=== PATIENT | male | born 1995 | race Caucasian/White ===

== ENCOUNTER 2017-06-27 17:28 | Emergency (ER) | payer BC ==
--- NOTE | 2017-06-27 18:27 | EDM.PDOC ---
ED HPI GENERAL MEDICAL PROBLEM - General Chief Complaint: Respiratory Problem Stated Complaint: PT HAS FLU SYMPTOMS Time Seen by Provider: 06/27/17 17:36 Source of Information: Reports: Patient History Limitations: Reports: No Limitations - History of Present Illness INITIAL COMMENTS - FREE TEXT/NARRATIVE: HISTORY AND PHYSICAL: History of present illness: Patient is a 21-year-old male who presents to the emergency room today with complaints of cough 1 month. Over the past 2-3 days he has had body aches, sore throat, and productive cough (yellow/brown sputum). He states he has used Mucinex, Tylenol, ibuprofen with no relief. Denies any chest pain, shortness of breath, abdominal pain, nausea, vomiting or diarrhea. Denies any fever or chills. Has not received the influenza vaccine. Review of systems: As per history of present illness and below otherwise all systems reviewed and negative. Past medical history: As per history of present illness and as reviewed below otherwise noncontributory. Surgical history: As per history of present illness and as reviewed below otherwise noncontributory. Social history: No reported history of drug or alcohol abuse. Family history: As per history of present illness and as reviewed below otherwise noncontributory. Physical exam: General: Well-developed and well-nourished 21-year-old male. Alert and oriented. Nontoxic appearing and in no acute distress. HEENT: Atraumatic, normocephalic, pupils reactive, negative for conjunctival pallor or scleral icterus, mucous membranes moist, tympanic membranes normal bilaterally, mild erythema noted to posterior pharynx otherwise throat clear, neck supple, nontender, trachea midline. Lungs: Clear to auscultation, breath sounds equal bilaterally, chest nontender. Dry nonproductive cough noted. Heart: S1S2, regular rate and rhythm Abdomen: Soft, nondistended, nontender. Negative for masses or hepatosplenomegaly. Negative for costovertebral tenderness (nephrectomy on right ). Pelvis: Stable nontender. Genitourinary: Deferred. Rectal: Deferred. Extremities: Atraumatic, moves all extremities per self, negative for cords or calf pain. Neurovascular unremarkable. Neuro: Awake, alert, oriented. Cranial nerves II through XII unremarkable. Cerebellum unremarkable. Motor and sensory unremarkable throughout. Exam nonfocal. Influenza and strep are negative. Due to patient's history of coughing 1 month , we will place the patient on a Z-Genaro and Medrol Dosepak. He is really electronically sent to an [facility] pharmacy. Patient is complaining of throat pain and would like something besides [id number] medication. We'll give Phenergan with codeine, 10 amounts every 6 hours when necessary. Encouraged him to save this for nighttime or evening use. He voices understanding. Dispense 4 ounces, no refill. Supportive care measures were discussed with the patient. He voices understanding and is agreeable to plan of care. He denies any further questions at this time. Diagnostics: Influenza, strep Therapeutics: [] Impression: Bronchitis Plan: 1. Influenza and strep screening were negative. Due to the longevity of your cough and symptoms we'll place you on an antibiotic and steroid dosing pack. Please take these medications as directed. Phenergan with codeine has been prescribed for cough. This medication will make you drowsy so do not take it while driving or needing to be functioning outside of the house. 2. Follow up with her primary caregiver in the next 1-2 days. Return to the ED as needed and as discussed. Definitive disposition and diagnosis as appropriate pending reevaluation and review of above. Throat Pain Score (Numeric/FACES): 1 - Related Data Allergies Allergy/AdvReac Type Severity Reaction Status Date / Time No Known Allergies Allergy Verified 06/27/17 18:03 Home Meds: Home Meds Azithromycin 250 mg PO DAILY #6 tab 06/27/17 [Rx] methylPREDNISolone [Medrol] 4 mg PO DAILY #1 dospk 06/27/17 [Rx] Past Medical History - Past Health History Medical/Surgical History: Denies Medical/Surgical History Social & Family History - Family History Family Medical History: Noncontributory - Tobacco Use Smoking Status *Q: Never Smoker - Caffeine Use Caffeine Use: Reports: Coffee, Energy Drinks - Recreational Drug Use Recreational Drug Use: No ED ROS GENERAL - Review of Systems Review Of Systems: ROS reveals no pertinent complaints other than HPI. ED EXAM, GENERAL - Physical Exam Exam: See Below (See dictation) Course - Vital Signs Last Recorded V/S: Last Vital Signs Temp 97.7 F 06/27/17 18:03 Pulse 107 H 06/27/17 18:03 Resp 20 06/27/17 18:03 BP 140/79 06/27/17 18:03 Pulse Ox 96 06/27/17 18:03 - Orders/Labs/Meds Orders: Active Orders 24 hr Category Date Time Status CULTURE STREP A CONFIRMATION [] Stat Lab 06/27/17 18:00 Results STREP SCRN A RAPID W CULT CONF [] Stat Lab 06/27/17 18:00 Results Departure - Departure Time of Disposition: 18:34 Disposition: Home, Self-Care 01 Clinical Impression: Bronchitis - Discharge Information Prescriptions: Azithromycin 250 mg PO DAILY #6 tab methylPREDNISolone [Medrol] 4 mg PO DAILY #1 dospk Instructions: Acute Bronchitis, Adult, [id number] Referrals: PCP,None [Primary Care Provider] - Forms: ED Department Discharge Additional Instructions: My general discharge The following information is given to patients seen in the emergency department who are being discharged to home. This information is to outline your options for follow-up care. We provide all patients seen in our emergency department with a follow-up referral. The need for follow-up, as well as the timing and circumstances, are variable depending upon the specifics of your emergency department visit. If you don't have a primary care physician on staff, we will provide you with a referral. We always advise you to contact your personal physician following an emergency department visit to inform them of the circumstance of the visit and for follow-up with them and/or the need for any referrals to a consulting specialist. The emergency department will also refer you to a specialist when appropriate. This referral assures that you have the opportunity for follow-up care with a specialist. All of these measure are taken in an effort to provide you with optimal care, which includes your follow-up. Under all circumstances we always encourage you to contact your private physician who remains a resource for coordinating your care. When calling for follow-up care, please make the office aware that this follow-up is from your recent emergency room visit. If for any reason you are refused follow-up, please contact the [facility] at and asked to speak to the emergency department charge nurse. [facility] [address] [place] [id number] 1. Influenza and strep screening were negative. Due to the longevity of your cough and symptoms we'll place you on an antibiotic and steroid dosing pack. Please take these medications as directed. Phenergan with codeine has been prescribed for cough. This medication will make you drowsy so do not take it while driving or needing to be functioning outside of the house. 2. Follow up with her primary caregiver in the next 1-2 days. Return to the ED as needed and as discussed. - My Orders Last 24 Hours: My Active Orders 06/27/17 18:00 CULTURE STREP A CONFIRMATION [RM] Stat STREP SCRN A RAPID W CULT CONF [] Stat - Assessment/Plan Last 24 Hours: My Active Orders 06/27/17 18:00 CULTURE STREP A CONFIRMATION [RM] Stat STREP SCRN A RAPID W CULT CONF [] Stat
== END 2017-06-27 18:45 | disposition home or self-care (01) ==
LOC: MW.ED 17:28
DX: J40 Bronchitis, not specified as acute or chronic (principal); Z79.899 Other long term (current) drug therapy
CPT/HCPCS: 87081; 87804; 87880; 99283